=== PATIENT | female | born 1960 | race Caucasian/White ===

== ENCOUNTER 2017-08-31 06:35 | Emergency (ER) | payer BC ==
[~2017-08-31] VITALS: Ht 157.5 cm; Wt 52.8 kg
[~2017-08-31 06:35] MED LIST: BP MED; FLEXERIL10 MG PO; MEDROL DOSEPAK4 MG PO; NAPROSYN500 MG PO; PERCOCET 5/31 TABLET PO; ULTRAM50 MG PO; ZESTRIL20 MG PO
[2017-08-31] MEDS ORDERED: NAPROSYN500 MG PO (08:31)
[2017-08-31 08:39] VITALS: BP 139/82
== END 2017-08-31 08:42 | disposition home or self-care (01) ==
LOC: EME 06:35
DX: J02.9 Acute pharyngitis, unspecified (principal); B34.9 Viral infection, unspecified; F17.200 Nicotine dependence, unspecified, uncomplicated
CPT/HCPCS: 87651 90; 99281; 99284